=== PATIENT | male | born 1970 | race Caucasian/White ===

== ENCOUNTER 2021-12-16 07:21 | Day surgery (SDC) | payer OTHER ==
[~2021-12-16] VITALS: Ht 177.8 cm; Wt 90.7 kg
[2021-12-16] MEDS ORDERED: LIDOCAINE 2% 100 MG/5 ML UJET TP ONE (08:57)
[2021-12-16] MEDS ORDERED: fentaNYL citrate 0.05 MG/ML VIAL ONE (08:57)
[2021-12-16] MEDS ORDERED: fentaNYL citrate 0.05 MG/ML VIAL IVP ONE (09:25)
== END 2021-12-16 09:58 | disposition home or self-care (01) ==
LOC: MOR 07:21 → MMU 07:22 → MOR 09:58
PROVIDERS: ATTEND Internal Medicine Gastroenterology
DX: Z12.11 Encounter for screening for malignant neoplasm of colon (principal); I10 Essential (primary) hypertension; E78.00 Pure hypercholesterolemia, unspecified; K57.30 Diverticulosis of large intestine without perforation or abscess without bleeding; K76.0 Fatty (change of) liver, not elsewhere classified; Z79.899 Other long term (current) drug therapy; Z20.822 Contact with and (suspected) exposure to COVID-19
CPT/HCPCS: 45378; 87426; J3010